=== PATIENT | male | born 1980 | race Hispanic/Latino ===

== ENCOUNTER 2024-03-01 10:53 | Inpatient (IN) | payer SELFPAY ==
[2024-03-01] MEDS ORDERED: VANCOMYCIN 1 GM/VIAL ONE (11:50)
[2024-03-01] MEDS ORDERED: CEFEPIME 2 GM VIAL ONE (11:50)
[2024-03-01] MEDS ORDERED: NA CHLORIDE 0.9% 100 ML ONE (11:50)
[2024-03-01] MEDS ORDERED: NA CHLORIDE 0.9% 500 ML ONE (11:50)
[2024-03-01] MEDS ORDERED: NA CHLORIDE 0.9% 3,000 ML ONE (11:50)
[2024-03-01 12:03] LABS: Blood Gas Oxyhemoglobin 58.2 % (94-97); Blood O2 Saturation 60.3 % (92-98.5)
[2024-03-01 12:04] LABS: Arterial Blood Carboxyhemoglob 1.5 % (0-1.5); Blood Gas THB 12.6 g/dl (12-18)
[2024-03-01 12:08] LABS: PT Prothrombin Time 15.6 SECONDS (9.4-12.5); PTT, Activated Partial Thromb 29.9 SECONDS (24.3-36.9); Protime INR 1.41
[2024-03-01 12:09] LABS: Absolute Lymphocytes (CBC) 0.8 K/uL (0.7-4.9); Absolute Monocytes 1.1 K/uL (0.1-1.3); Absolute Neutrophil 16.2 K/uL (1.8-8.0); Eosinophils % 0.1 % (0-4.4); Hematocrit 36.3 % (39.6-49.0); Hemoglobin 12.3 g/dL (13.6-17.9); Lymphocytes % 4.2 % (15.3-44.8); MCH 30.1 pg (27.0-35.0); MCHC 33.9 g/dL (32.0-36.0); MCV 88.8 fL (80-100); MPV 9.8 fL (7.6-11.3); Neutrophils % 89.7 % (41.7-73.7); Platelets 210 thou/uL (152-406); RBC Red Blood Cell Count 4.08 M/uL (4.33-5.43); Red Cell Distribution Width 13.7 % (12.1-15.2)
[2024-03-01 12:23] LABS: Albumin 2.7 g/dL (3.4-5.0); Albumin/Globulin Ratio 0.5 (1.1-1.8); Anion Gap 9.7 mEq/L (5.0-15.0); Bilirubin Total 1.8 mg/dL (0.2-1.0); Globulin 5.2 g/dL (2.3-3.5); Potassium 3.7 mEq/L (3.5-5.1); Protein, Total 7.9 g/dL (6.4-8.2)
--- NOTE | 2024-03-01 12:34 | RAD REPORT ---
EXAM DESCRIPTION: CT - Foot Right Wo Con - 03/01/2024 12:09 pm CLINICAL HISTORY: eval for osteo/infection COMPARISON: Chest Single View dated 03/01/2024 TECHNIQUE: Thin cut axial CT imaging of the right foot was performed without IV contrast. Multiplana r reformats were generated and reviewed. All CT scans are performed using dose optimization technique as appropriate and may include automated exposure control or mA/KV adjustment according to patient size. FINDINGS: Skin ulceration along the lateral aspect of the big toe at the level of the first metatars ophalangeal articulation. Adjacent soft tissue swelling, and gas tracking along the dorsal soft tissu es surrounding the extensor tendons, and gas also tracking distally along the proximal phalanx. Moderate first metatarsophalangeal joint effusion. No acute fracture, dislocation, or osseous destructive changes. No other appreciable fluid collections. Moderate subcutaneous edema throughout the foot and ankle, mo st pronounced dorsally. Mild scattered degenerative changes of the remainder of the phalanges, and to lesser extent the midfo ot articulations. Small to moderate calcaneal spurring. IMPRESSION: Bilateral big toe soft tissue ulcer with gas tracking along the dorsal soft tissues and the proximal phalanx as above. No osseous destructive changes to suggest ongoing osteomyelitis on CT. If there is persistent clinica l concern, additional evaluation by MRI would provide improved sensitivity. Moderate first metatarsophalangeal joint effusion.
[2024-03-01 12:59] LABS: Specific Gravity 1.024 (1.005-1.030); Sqamous Epithelial <5 /HPF (None Seen); Urine Bacteria <20 /HPF (<20); Urine Bilirubin 1+ (Negative); Urine Blood 2+ (Negative); Urine Clarity Extremely Turbid (Clear); Urine Color Yellow (Yellow); Urine Culture Reflex Order NOT NEEDED; Urine Glucose 3+ (Negative); Urine Ketones NEGATIVE (Negative); Urine Microscopic Reflex YN ORDER UMIC; Urine Mucus Slight /HPF (None Seen); Urine Nitrite NEGATIVE (Negative); Urine Protein 3+ (Negative); Urine RBC <5 /HPF (None Seen); Urine Urobilinogen 2+ (Normal)
--- NOTE | 2024-03-01 13:05 | RAD REPORT ---
[facility] 12[facility]34 pm CLINICAL HISTORY: COUGH COMPARISON: Chest Single View dated 03/18/2023; Chest Single View dated 05/14/2022 TECHNIQUE: Portable AP view of the chest. FINDINGS: The lungs are clear. No pneumothorax or effusion. Progressive cardiomegaly. Mediastinal c ontours are unremarkable. IMPRESSION: No acute pulmonary process. Progressive cardiomegaly.
--- NOTE | 2024-03-01 13:25 | ER ---
Nurse's Notes [facility] Name: Abelino Corbin Jr Age: 43 yrs Sex: Male : 1980 Arrival Date: 03/01/2024 Time: 10:53 Bed 6 Private MD: Diagnosis: Necrotizing fasciitis;Sepsis, unspecified organism;Other specified diabetes mellitus with hyperglycemia;Acute kidney failure, unspecified Presentation: 03/01 11:02 Chief complaint: Patient states: right great toe ulcers x 3 months. Foot is swollen, tm6 red, and causing sharp pain in ankle. Coronavirus screen: Vaccine status: Patient reports being unvaccinated. Ebola Screen: Patient negative for fever greater than or equal to 101.5 degrees Fahrenheit, and additional compatible Ebola Virus Disease symptoms Patient denies exposure to infectious person. Patient denies travel to an Ebola-affected area in the 21 days before illness onset. No symptoms or risks identified at this time. Initial Sepsis Screen: Does the patient meet any 2 criteria? HR > 90 bpm. No. Patient's initial sepsis screen is negative. Does the patient have a suspected source of infection? No. Patient's initial sepsis screen is negative. Risk Assessment: Do you want to hurt yourself or someone else? Patient reports no desire to harm self or others. Onset of symptoms is unknown. 11:02 Method Of Arrival: Ambulatory tm6 11:02 Acuity: ROBERTA 3 tm6 Triage Assessment: 11:05 General: Appears uncomfortable, Behavior is calm, cooperative. Pain: Complains of pain tm6 in right foot Pain radiates to back and right leg Pain currently is 8 out of 10 on a pain scale. Quality of pain is described as sharp, shooting, throbbing. EENT: No signs and/or symptoms were reported regarding the EENT system. Neuro: Level of Consciousness is awake, alert, obeys commands, Oriented to person, place, time, situation. Cardiovascular: Patient's skin is warm and dry. Respiratory: Airway is patent Respiratory effort is even, unlabored, Respiratory pattern is regular, symmetrical. GI: No deficits noted. No signs and/or symptoms were reported involving the gastrointestinal system. Abdomen is round. : No signs and/or symptoms were reported regarding the genitourinary system. Derm: Skin is red, Skin temperature is warm Wound noted right foot. Musculoskeletal: Swelling present in right foot Reports pain in right foot. Historical: - Allergies: 11:05 starfruit; tm6 - PMHx: 11:05 Hypertensive disorder; diabetes mellitus; Alcoholism; tm6 - PSHx: 11:05 None; tm6 - Immunization history:: Client reports having NOT received the Covid vaccine. - Infectious Disease History:: Denies. - Social history:: Smoking status: Patient denies any tobacco usage or history of. Patient uses alcohol, on a daily basis. Screenin:32 [facility] ED Fall Risk Assessment (Adult) History of falling in the last 3 months, kc6 including since admission No falls in past 3 months (0 pts) Confusion or Disorientation No (0 pts) Intoxicated or Sedated No (0 pts) Impaired Gait No (0 pts) Mobility Assist Device Used No (0 pt) Altered Elimination No (0 pt) Score/Fall Risk Level 0 - 2 = Low Risk. Abuse screen: Denies threats or abuse. Denies injuries from another. Nutritional screening: No deficits noted. Tuberculosis screening: No symptoms or risk factors identified. 11:42 Sepsis Screening:. Sepsis Screening:. go2 Assessment: 11:39 General: Appears in no apparent distress. uncomfortable, Behavior is calm, cooperative, go2 appropriate for age, Smells of Denies fever, feeling ill, fatigue, chills. Pain: Complains of pain in right foot Pain does not radiate. Pain currently is 7 out of 10 on a pain scale. Quality of pain is described as burning, aching, Pain began 2 months ago. 11:41 Neuro: No deficits noted. Cardiovascular: No deficits noted. Respiratory: No deficits go2 noted. Musculoskeletal: Swelling present in right foot Pulse, motor, sensory present to right lower extremity. Injury Description: Ulcer with odor and drainage. Vital Signs: 11:01 BP 173 / 85; Pulse 103; Resp 20; Temp 99(O); Pulse Ox 99% on R/A; Weight 108.86 kg; tm6 Height 5 ft. 4 in. ; Pain 7/10; 12:35 BP 152 / 98; Pulse 98; Resp 18 S; Pulse Ox 100% on R/A; kc6 14:18 BP 155 / 93; Pulse 94; Resp 20; Temp 98.9; Pulse Ox 100% ; go2 11:01 Body Mass Index 41.20 (108.86 kg, 162.56 cm) tm6 11:01 Pain Scale: Adult tm6 ED Course: 10:57 Patient arrived in ED. ra3 10:58 Carmen Bush MD is Attending Physician. gb1 11:05 Triage completed. tm6 11:05 Arm band placed on left wrist. tm6 11:17 Jerri Ballesteros, RN is Primary Nurse. go2 11:31 Patient has correct armband on for positive identification. Bed in low position. Call kc6 light in reach. Side rails up X 1. Adult w/ patient. desk monitor on. Pulse ox on. NIBP on. Pillow given. 11:31 EKG done, by ED staff, reviewed by Carmen Bush MD. kc6 11:39 Inserted saline lock: 20 gauge in right forearm, using aseptic technique. go2 12:00 Arterial Blood Gas: VBG Sent. go2 12:00 BETA HYDROXYBUTYRATE Sent. go2 12:02 Blood Culture Adult (2) Sent. go2 12:02 CBC with Diff Sent. go2 12:02 CMP Sent. go2 12:02 Lactate w/ 2H reflex if indic. Sent. go2 12:02 Protime (+inr) Sent. go2 12:02 Ptt, Activated Sent. go2 12:[address] via stretcher. go2 12:11 Foot Right Wo Con In Process Unspecified. EDMS 12:22 Patient moved back from CT. go2 12:36 Chest Single View XRAY In Process Unspecified. EDMS 12:43 Blood Culture Adult (2) Sent. go2 12:43 Urinalysis w/ reflexes Sent. go2 13:17 Pain meds. Eleazar SANTAMARIA notified. go2 13:23 Carl Alaniz MD is Hospitalizing Provider. gb1 14:15 415 CM met with and his parents at bedside. Patient identified by name and ane . Demographic sheet confirmed. Patient states he lives with his parents in a single story home . states he has been using a cane to assist with ambulation, but otherwise performs ADLs independently prior to admission. 1417 Dalton Ferguson NP and Dr. Garcia at bedside to discuss plan of care. 1425 states no other DME, HH, home oxygen or medical services at this time. No MPOA at this time, patient states he will discuss with his parents. Community resource packet and diabetic education information services provided to patient. states his preferred plan is to return home upon discharge. Patient's mother, Jess, states she will be able to transport home when he is discharged. CM team will continue to follow and coordinate care. 14:19 Admitting physician to see patient. go2 14:20 human resources communications manager. go2 15:26 No provider procedures requiring assistance completed. Patient admitted, IV remains in go2 place. Administered Medications: 12:00 Drug: Cefepime IVPB 2 grams IVPB at 200 ml/hr once over 30 mins; (mix in NS 100 mL) go2 Route: IVPB; Rate: 200 ml/hr; Infused Over: 30 mins; Site: right forearm; 12:43 Follow up: IV Status: Completed infusion go2 12:44 Follow up: IV Status: Completed infusion go2 12:03 Drug: NS 0.9% IV (30 ml/kg) 30 ml/kg IV at bolus once; Sepsis Protocol Route: IV; Rate: go2 bolus; Site: right forearm; 15:22 Follow up: IV Status: Completed infusion go2 12:43 Drug: vancoMYCIN IVPB 2 grams IVPB at calculated rate once Route: IVPB; Rate: go2 calculated rate; Site: right forearm; 14:12 Drug: morphine IVP or IV 5 mg IVP once over 4 mins Route: IVP; Infused Over: 4 mins; go2 Site: right forearm; 14:19 Follow up: Response: No adverse reaction go2 14:12 Drug: Ondansetron IVP 4 mg IVP once; over 2 minutes Route: IVP; Site: right forearm; go2 14:19 Follow up: Response: No adverse reaction go2 Output: 12:44 Urine: 30ml (Voided); Total: 30ml. go2 Outcome: 13:24 Decision to Hospitalize by Provider. gb1 15:26 Admitted to Med/surg accompanied by tech, family with patient, via wheelchair, room go2 219, with chart, 15:26 Condition: good 15:26 Instructed on the need for admit, 15:27 Patient left the ED. kc6 Signatures: Dispatcher [employer] Mignon Banuelos RN RN kc6 Carmen Bush MD MD gb1 Jesus Cullen, RN RN tm6 Tressa Greenberg ra3 Laurie Claros, RN RN Jerri Delgado RN RN go2
--- NOTE | 2024-03-01 13:25 | EDPHYS ---
Physician Documentation [facility] Name: Abelino Corbin Jr Age: 43 yrs Sex: Male : 1980 Arrival Date: 03/01/2024 Time: 10:53 Bed 6 Private MD: ED Physician Carmen Bush HPI: 03/01 13:24 This 43 yrs old Male presents to ER via Ambulatory with complaints of Foot gb1 Pain - open wound psbl infection. 13:24 43 year old male with history of NIDDM, HTN, HLD here with concern for acute gb1 necrotizing fasciitis, started IV antibx and consulted general surgery, Dr. Garcia- is on the case.. Historical: - Allergies: 11:05 starfruit; tm6 - PMHx: 11:05 Hypertensive disorder; diabetes mellitus; Alcoholism; tm6 - PSHx: 11:05 None; tm6 - Immunization history:: Client reports having NOT received the Covid vaccine. - Infectious Disease History:: Denies. - Social history:: Smoking status: Patient denies any tobacco usage or history of. Patient uses alcohol, on a daily basis. Exam: 13:24 Constitutional: This is a well developed, well nourished patient who is awake, alert, gb1 and in no acute distress. Head/Face: Normocephalic, atraumatic. Eyes: Pupils equal round and reactive to light, extra-ocular motions intact. Lids and lashes normal. Conjunctiva and sclera are non-icteric and not injected. Cornea within normal limits. Periorbital areas with no swelling, redness, or edema. ENT: Nares patent. No nasal discharge, no septal abnormalities noted. Tympanic membranes are normal and external auditory canals are clear. Oropharynx with no redness, swelling, or masses, exudates, or evidence of obstruction, uvula midline. Mucous membranes moist. Neck: Trachea midline, no thyromegaly or masses palpated, and no cervical lymphadenopathy. Supple, full range of motion without nuchal rigidity, or vertebral point tenderness. No Meningismus. Chest/axilla: Normal chest wall appearance and motion. Nontender with no deformity. No lesions are appreciated. Cardiovascular: Regular rate and rhythm with a normal S1 and S2. No gallops, murmurs, or rubs. Normal PMI, no JVD. No pulse deficits. Respiratory: Lungs have equal breath sounds bilaterally, clear to auscultation and percussion. No rales, rhonchi or wheezes noted. No increased work of breathing, no retractions or nasal flaring. Abdomen/GI: Soft, non-tender, with normal bowel sounds. No distension or tympany. No guarding or rebound. No evidence of tenderness throughout. Skin: 43-year-old male with history of noncompliance diabetes, hypertension hyperlipidemia stop taking his medicine about a year ago comes in with a right foot necrotizing fasciitis. I started IV antibiotics and consult with Dr. Garcia of general surgeon for washout in the operating room. Patient's been admitted by Dr. Alaniz as per the hospitalist service. I have started the sepsis protocol. IV antibiotics were started Vanco mycin and cefepime as well as 30 cc/kg of normal saline. Vital Signs: 11:01 BP 173 / 85; Pulse 103; Resp 20; Temp 99(O); Pulse Ox 99% on R/A; Weight 108.86 kg; tm6 Height 5 ft. 4 in. ; Pain 7/10; 12:35 BP 152 / 98; Pulse 98; Resp 18 S; Pulse Ox 100% on R/A; kc6 14:18 BP 155 / 93; Pulse 94; Resp 20; Temp 98.9; Pulse Ox 100% ; go2 11:01 Body Mass Index 41.20 (108.86 kg, 162.56 cm) tm6 11:01 Pain Scale: Adult tm6 MDM: 11:13 Patient medically screened. gb1 13:24 Data reviewed: vital signs, nurses notes, lab test result(s), CBC, electrolytes, gb1 hepatic panel, radiologic studies, CT scan. 03/01 11:40 Order name: Blood Culture Adult (2) 1 03/01 11:40 Order name: CBC with Diff; Complete Time: 12:35 [facility] 03/01 11:40 Order name: CMP; Complete Time: 12:35 [facility] 03/01 11:40 Order name: Lactate w/ 2H reflex if indic.; Complete Time: 12:35 [facility] 03/01 11:40 Order name: Protime (+inr); Complete Time: 12:35 [facility] 03/01 11:40 Order name: Ptt, Activated; Complete Time: 12:35 gb 03/01 11:40 Order name: Urinalysis w/ reflexes; Complete Time: 13:14 03/01 11:42 Order name: BETA HYDROXYBUTYRATE; Complete Time: 12:35 03/01 11:42 Order name: Arterial Blood Gas: VBG 03/01 11:48 Order name: Glucose, Ancillary Testing; Complete Time: 12:35 EDMS 03/01 12:05 Order name: ABG Arterial Blood Gas; Complete Time: 12:35 EDMS 03/01 11:40 Order name: Chest Single View XRAY; Complete Time: 13:14 03/01 11:47 Order name: Foot Right Wo Con; Complete Time: 12:35 EDMS 03/01 11:40 Order name: Accucheck; Complete Time: 11:44 03/01 11:40 Order name: Cardiac monitoring; Complete Time: 11:44 03/01 11:40 Order name: EKG - Nurse/Tech; Complete Time: 11:44 03/01 11:40 Order name: IV Saline Lock - Large Bore; Complete Time: 11:44 03/01 11:40 Order name: Labs collected and sent; Complete Time: 11:44 03/01 11:40 Order name: O2 Per Protocol; Complete Time: 11:44 03/01 11:40 Order name: O2 Sat Monitoring; Complete Time: 11:45 03/01 11:40 Order name: Vital Signs; Complete Time: 11:45 03/01 13:57 Order name: NPO; Complete Time: 14:08 gb Administered Medications: 12:00 Drug: Cefepime IVPB 2 grams IVPB at 200 ml/hr once over 30 mins; (mix in NS 100 mL) go2 Route: IVPB; Rate: 200 ml/hr; Infused Over: 30 mins; Site: right forearm; 12:43 Follow up: IV Status: Completed infusion go2 12:44 Follow up: IV Status: Completed infusion go2 12:03 Drug: NS 0.9% IV (30 ml/kg) 30 ml/kg IV at bolus once; Sepsis Protocol Route: IV; Rate: go2 bolus; Site: right forearm; 15:22 Follow up: IV Status: Completed infusion go2 12:43 Drug: vancoMYCIN IVPB 2 grams IVPB at calculated rate once Route: IVPB; Rate: go2 calculated rate; Site: right forearm; 14:12 Drug: morphine IVP or IV 5 mg IVP once over 4 mins Route: IVP; Infused Over: 4 mins; go2 Site: right forearm; 14:19 Follow up: Response: No adverse reaction go2 14:12 Drug: Ondansetron IVP 4 mg IVP once; over 2 minutes Route: IVP; Site: right forearm; go2 14:19 Follow up: Response: No adverse reaction go2 Disposition Summary: 03/01/24 13:24 Hospitalization Ordered Notes: Hospitalization Status: Inpatient Admission gb1 Provider: Carl Alaniz gb1 Location: Telemetry/MedSurg (Inpatient) gb1 Condition: Fair gb1 Problem: new gb1 Symptoms: have worsened gb1 Bed/Room Type: Standard 1 Room Assignment: 219(03/01/24 13:53) bd Diagnosis - Necrotizing fasciitis gb1 - Sepsis, unspecified organism gb1 - Other specified diabetes mellitus with hyperglycemia gb1 - Acute kidney failure, unspecified gb1 Forms: - Medication Reconciliation Form gb1 - SBAR form gb1 - Leadership Thank You Letter gb1 Critical care time excluding procedures: 13:45 Critical care time: Bedside Care: 75 minutes, Consultation: 15 minutes, Family gb1 Intervention: 20 minutes. Total time: 110 minutes Signatures: Dispatcher [employer] EDMS Estelle Redding Gina, MD MD gb1 Jesus Cullen RN RN tm6 Jerri Ballesteros RN RN go2 Corrections: (The following items were deleted from the chart) 11:41 11:41 Chest Single View+RAD.RAD.BRZ ordered. EDMS EDMS 13:53 13:24 gb1 bd
--- NOTE | 2024-03-01 14:02 | P.HP ---
Certification for Inpatient Patient admitted to: Inpatient With expected LOS: >2 Midnights Patient will require the following post-hospital care: None Practitioner: I am a practitioner with admitting privileges, knowledge of patient current condition, hospital course, and medical plan of care. Services: Services provided to patient in accordance with Admission requirements found in Title 42 Section 412.3 of the Code of Federal Regulations Patient History Date of Service: 03/01/24 Reason for admission: Diabetic foot wound, sepsis History of Present Illness: 43-year-old male with history of zym-eqrjibt-ldhwwefza diabetes, hypertension, chronic alcohol use disorder who has been noncompliant with his medications for last 1 year presents emergency department chief complaint of concern for infection of his right foot. He reports that he typically deals with his calluses with a knife and he has had a small wound present to that part of his right foot for a couple months but over the last couple of days it has become swollen, erythematous with a foul odor present. Patient was evaluated in the emergency department his labs are significant for w zackery blood cell count of 18.1 sodium 126 chloride 94 creatinine 1.33 GFR 67 glucose [address] of his right foot was obtained which showed big toe soft tissue ulcer with gas tracking along the dorsal soft tissues in the proximal phalanx as above, no osseous destructive changes to suggest ongoing osteomyelitis on CT. ED physician discussed case with general surgeryDr. Garcia who will see patient in the hospital. Allergies No Known Allergies Allergy (Unverified 03/18/23 23:50) Home Medications: Aspirin [Aspirin EC 81 MG] 81 mg PO DAILY #30 tab 03/19/23 Atorvastatin Calcium [Lipitor] 40 mg PO BEDTIME #30 tab 03/19/23 Cefdinir [Cefdinir*] 300 mg PO BID #10 cap 03/19/23 Cyclobenzaprine [Flexeril] 10 mg PO DAILY PRN #10 tab 03/19/23 Hydrocodone 10/APAP 325 [[place] 10/325] 1 tab PO Q6H PRN #30 tab 03/19/23 Losartan Potassium [Cozaar*] 100 mg PO DAILY #30 tablet 03/19/23 Metformin HCl [Glucophage*] 500 mg PO BIDWM #60 tab 03/19/23 Ondansetron [Zofran] 4 mg PO Q6H PRN #10 tab 03/19/23 Zolpidem Tartrate [Ambien] 5 mg PO BEDTIME PRN PRN #5 tab 03/19/23 glyBURIDE [Glyburide] 5 mg PO DAILY #30 tab 03/19/23 - Past Medical/Surgical History Diabetic: Yes -: Uncontrolled hypertension -: Uncontrolled hyperlipidemia -: Uncontrolled diabetes mellitus -: Chronic alcohol use disorder Psychosocial/ Personal History: Works full-time, daily alcohol use 6-8 beers daily, - Social History Alcohol use: Yes CD- Drugs: No Caffeine use: No Place of Residence: Home Review of Systems General: Malaise, Other (body aches) Integumentary: Other (Wound to right foot) Physical Examination - Physical Exam General: Alert, In no apparent distress, Oriented x3, Obese HEENT: Atraumatic, PERRLA, EOMI Neck: Supple, 2+ carotid pulse no bruit, No LAD Respiratory: Clear to auscultation bilaterally, Normal air movement Cardiovascular: Regular rate/rhythm, Normal S1 S2 Gastrointestinal: Normal bowel sounds, No tenderness Musculoskeletal: No tenderness Integumentary: Diabetic ulcer (Great toe with erythema, swelling, foul odor and drainage) Neurological: Normal speech, Normal strength at 5/5 x4 extr, Normal tone - Studies Laboratory Data (last 24 hrs) 03/01/24 03/01/24 03/01/24 11:45 11:45 11:45 WBC 18.10 H Hgb 12.3 L Hct 36.3 L Plt Count 210 PT 15.6 H INR 1.41 APTT 29.9 Sodium 126 L Potassium 3.7 BUN 21 H Creatinine 1.33 H Glucose 241 H Total Bilirubin 1.8 H AST 20 ALT 22 Alkaline Phosphatase 99 Assessment and Plan - Plan Assessment: Sepsis secondary to right great toe wound with gas gangrene Diabetes mellitus type [id number]-wejylrpdd with noncompliance, hyperglycemia Hyponatremia History of hypertension Chronic alcohol use disorder Medical noncompliance Plan: Sepsis secondary to right great toe wound with gas gangrene N.p.o., IVF, IV antibiotics with vancomycin/cefepime General Surgery consulted, anticipate incision and drainage/debridement No severe sepsis or septic shock at this time Blood cultures obtained in [facility] need to follow Diabetes mellitus type [id number] with noncompliance, hyperglycemia Has not been taking his medications for about a year now ACHS Accu-Chek, sliding scale insulin A1c in the morning Hyponatremia Likely related to chronic alcohol use, continue IV fluids Recheck chemistry daily History of hypertension Hold unless blood pressures persistently elevated given sepsis Chronic alcohol use disorder Alcohol withdrawal assessments every 4 and as needed As needed Librium Medical noncompliance Counseled on importance of adherence to medication regimen DVT PPX: Lovenox Code status: Full Discharge Plan: Home Plan to discharge in: Greater than 2 days - Advance Directives Does patient have a Living Will: No Does patient have a Durable POA for Healthcare: No - Code Status/Comfort Care Code Status Assessed: Yes (Full code) Critical Care: No Time Spent Managing Pts Care (In Minutes): 65
[2024-03-01] MEDS ORDERED: ONDANSETRON 4 MG/2 ML VIAL ONE (14:10)
[2024-03-01] MEDS ORDERED: MORPHINE 4 MG/ML SYR ONE (14:11)
[2024-03-01] MEDS ORDERED: ONDANSETRON 4 MG/2 ML VIAL IV PRN (15:37)
[2024-03-01] MEDS: NA CHLORIDE 0.9% 1,000 ML IV SCH (16:45)
[2024-03-01] MEDS: ENOXAPARIN 40 MG/0.4 ML SQ SCH (16:46)
[2024-03-01] MEDS: INSULIN REGULAR (HUMAN) 100 UNIT/ML SQ SCH (16:46)
[2024-03-01] MEDS: HYDROCODONE/APAP 7.5/325 MG TAB PO PRN (16:46)
[2024-03-01] MEDS: CEFEPIME 2 GM in NA CHLORIDE 0.9% 100 ML IV SCH (16:47)
[2024-03-01] MEDS: VANCOMYCIN 750 MG in NA CHLORIDE 0.9% 150 ML IVPB ONE (17:29)
[2024-03-01] MEDS: MORPHINE 2 MG/ML SYR IV PRN (20:15)
[2024-03-02] MEDS: HYDRALAZINE HCL 20 MG/ML VIAL IV PRN (04:43)
[2024-03-02 05:01] LABS: Absolute Eosinophils 0.2 K/uL (0-0.5); Absolute Lymphocytes (CBC) 1.1 K/uL (0.7-4.9); Absolute Monocytes 0.9 K/uL (0.1-1.3); Absolute Neutrophil 12.9 K/uL (1.8-8.0); Basophils % 0.3 % (0-1.3); Eosinophils % 1.3 % (0-4.4); Hematocrit 37.2 % (39.6-49.0); Hemoglobin 12.1 g/dL (13.6-17.9); Lymphocytes % 7.1 % (15.3-44.8); MCH 29.7 pg (27.0-35.0); MCHC 32.6 g/dL (32.0-36.0); MCV 91.1 fL (80-100); MPV 10.5 fL (7.6-11.3); Monocytes % 6.2 % (3.3-12.3); Neutrophils % 85.1 % (41.7-73.7); Platelets 178 thou/uL (152-406); RBC Red Blood Cell Count 4.08 M/uL (4.33-5.43); Red Cell Distribution Width 13.6 % (12.1-15.2)
[2024-03-02 05:27] LABS: Albumin 2.4 g/dL (3.4-5.0); Albumin/Globulin Ratio 0.5 (1.1-1.8); Anion Gap 7.7 mEq/L (5.0-15.0); Globulin 4.9 g/dL (2.3-3.5); Magnesium 2.2 mg/dL (1.6-2.4); Potassium 3.7 mEq/L (3.5-5.1); Protein, Total 7.3 g/dL (6.4-8.2)
[2024-03-02 05:47] LABS: Band Neutrophils 2 % (0-1); Differential Total Cells Count 100; Lymphocytes 7 % (15-42); Monocytes 5 % (0-10); Segmented Neutrophils 86 % (40-80)
[2024-03-02 05:48] LABS: Blood Morphology Comment NOT SEEN (NOT SEEN); Platelet Estimate ADEQ
[2024-03-02] MEDS: BUPIVACAINE 0.5% PF 10 ML VIAL ONE (07:22)
[2024-03-02] MEDS ORDERED: ONDANSETRON 4 MG/2 ML VIAL ONE ×2 (07:42→07:53)
[2024-03-02] MEDS ORDERED: KETOROLAC 30 MG/ML INJ ONE ×2 (07:42→07:53)
[2024-03-02] MEDS ORDERED: LIDOCAINE 2% MPF 5 ML VIAL ONE ×2 (07:42→07:53)
[2024-03-02] MEDS ORDERED: dexAMETHasone 10 MG/ML VIAL ONE (07:53)
[2024-03-02] MEDS ORDERED: ROCURONIUM 50 MG/5 ML VIAL IV ONE (07:53)
[2024-03-02] MEDS ORDERED: MIDAZOLAM HCL 2 MG/2 ML INJ ONE (07:53)
[2024-03-02] MEDS ORDERED: FENTANYL CITR 100 MCG/2 ML ONE (07:53)
[2024-03-02] MEDS ORDERED: propofoL 200 MG/20 ML VIAL IV ONE (07:53)
[2024-03-02] MEDS: SILVER SULFADIAZINE 1% 25 GM TOP ONE (08:09)
--- NOTE | 2024-03-02 08:12 | P.BOP ---
Preoperative diagnosis: right foot necrotic infected diabetic foot ulcer Postoperative diagnosis: same Primary procedure: Excisional debridement down to fascia right foot necrotic infected Secondary procedure: diabetic foot ulcer 9x7x1.5cm Other procedure(s): Pulse lavage Estimated blood loss: <10cc Specimen: culture, necrotic tissue Anesthesia: General Complications: None Transferred to: Recovery Room Condition: Good
[2024-03-02] MEDS: VANCOMYCIN 2 GM in NA CHLORIDE 0.9% 500 ML IVPB SCH (09:15)
--- NOTE | 2024-03-02 11:58 | CON ---
Date of Consultation: 03/01/2024 History Of Present Illness: This is the case of a 43-year-old patient, comes to us with diabetes, hy pertension, chronic alcohol use, complaining of right foot infection. Apparently, he is diabetic, bu t he has not taken his medication in a year. Admitted to the hospital for infection of the right toe and a surgical consult was called for debridement. He denies any trauma. Denies any recent followu p. Denies any vascular checkup. Allergies: NONE. Medications: Reviewed. Family History: Diabetes. Past Surgical History: None. Social History: Used alcohol, 6 to 8 beers daily. He does not smoke. Review of Systems: Right foot, warm temperature with smell. No shortness of breath. No chest pain. Review of systems 10 points otherwise unremarkable. Physical Examination: Vital Signs: Reviewed. General: The patient is awake, alert. No distress. Oriented x3. HEENT: Pupils are equal and reactive. Anicteric. Neck: Supple. Chest: Clear. Heart: S1, S2. Abdomen: Soft and depressible. Extremities: Diminished pulses bilaterally. There is a necrotic diabetic ulcer in the right great t oe region. Consistent with cellulitis also of the foot area, necrotic ulcer. Sensation is still pre sent and diminished. Laboratory Data: Blood work shows WBC count of 18 with hemoglobin of 12 and platelets of 210. INR i s 1.41, potassium 3.7, glucose 174. Foot CT reviewed with the patient. Assessment And Plan: A 43-year-old patient with noncontrolled diabetes, he does not take his medicat ions, not a necrotic diabetic ulcer on the right foot and cellulitis and abscess. The patient unders tands the need for debridement of that area with benefits, alternatives, and risks including, but not limited to infection, bleeding, damage to adjacent structures, anesthesia complication, nonhealing w ound, MD and even . He also understands this may not relieve his symptoms. He might need more than one surgical intervention. He understands this will require wound care, antibiotics, will requi re some workup from the vascular and osteomyelitis standpoint. If he does not control his diabetes a nd take care of his wounds, he might lose his foot. He understood. ALLIE/MODL Voice ID: [id number] Report ID: [id number]
--- NOTE | 2024-03-02 12:42 | CON ---
History Of Present Illness: The patient is a 43-year-old male with significant past medical history of diabetes mellitus. Because of poor social condition, he has not seen any doctor for his diabetes, coming in with right foot infection and gas gangrene which was diagnosed at the time of admission. Patient has significant past medical history of diabetes mellitus, hypertension, chronic alcohol use. Denies any headache, nausea, vomiting, chest pain, abdominal pain, constipation, or diarrhea. Past Medical History: As per HPI. Social History: Tobacco positive. Alcohol positive. Family History: Noncontributory. Medications: Cefepime and vancomycin. See MARs for other medications. Allergies: NO KNOWN DRUG ALLERGIES. Review of Systems: A 10-point review was performed. Physical Examination: General: This is a 43-year-old male, sitting in bed, not in any acute cardiopulmonary distress. Vital Signs: Temperature 98, pulse 86, respirations 18, blood pressure 140/74. HEENT: Unremarkable. Neck: Supple. Lungs: Basal crackles. Heart: S1, S2. Regular. Abdomen: Obese. Bowel sounds present. Extremity: Right leg with erythematous changes, and wound noted, and 2+ edema. Laboratory Data: Shows WBC down from 18 to 15, hemoglobin 12.1, platelets are 178. Chemistry shows BUN of 23, creatinine 1.3, hemoglobin A1c is 7.5, albumin level is 2.4. Micro data: Blood cultures and wound cultures are pending. Assessment And Plan: Right foot ulcer secondary to diabetes mellitus with diabetic neuropathy, and p atient with noncompliance secondary to his social condition. CT scan showing gas tracking, gas gangr turner, status post surgical debridement. Patient is doing better. Continue IV antibiotic, leukocytosi s, diabetes management, to control sugar, fasting below 150. We will continue to monitor. Continue treatment for 3-4 weeks with IV antibiotic and can be switched to oral once surgery is done. We will follow the patient closely. Thank you for consult. BLAYNE/FRANCOIS Voice ID: [id number] Report ID: [id number]
--- NOTE | 2024-03-02 17:48 | EKG ---
Test Date: 2024-03-01 Test Time: 11:28:07 New Order Clerk: KATIA MEASUREMENT RESULTS: Intervals: Rate: 100 IA: 130 QRSD: 76 QT: 368 QTc: 474 [place]: P: 64 IA: 130 QRS: 62 T: 68 INTERPRETIVE STATEMENTS: Normal sinus rhythm Nonspecific T wave abnormality Prolonged QT Abnormal ECG Compared to ECG 03/18/2023 18:34:41 Prolonged QT interval now present T-wave abnormality still present Electronically Signed On 03-02-24 17:45:45 CDT by Ernesto Cedeno
--- NOTE | 2024-03-02 18:22 | P.PN ---
Date of Service: 03/02/24 Subjective Awake and teary eyed, feeling depressed. no new complaints ROS 10 point ROS as noted above, otherwise negative Physical Exam General: Alert and Oriented x3, NAD, Obese HEENT: Atraumatic, PERRLA, EOMI Neck: Supple, 2+ carotid pulse no bruit, No LAD Respiratory: Clear to auscultation bilaterally, Normal air movement Cardiovascular: Mild tachycardia, Normal S1 S2 Gastrointestinal: Normal bowel sounds, No tenderness Musculoskeletal: No tenderness Integumentary: Diabetic ulcer right foot dressing CDI Neurological: Normal speech, Normal strength at 5/5 x4 extr, Normal tone Vitals Reviewed Assessment: Sepsis secondary to right great toe wound with gas gangrene Diabetes mellitus type [id number]-sfsqtoerl with noncompliance, hyperglycemia Hyponatremia History of hypertension Chronic alcohol use disorder Medical noncompliance Plan Sepsis secondary to right great toe wound with gas gangrene N.p.o., IVF, continue IV vancomycin/cefepime General Surgery Dr. Garcia, S/P excisional debridement down to fascia right foot necrotic infected Follow wound cultures No severe sepsis or septic shock at this time Blood cultures obtained in EDNGTD Diabetes mellitus type 2ecn-[id number]-wikigzhyr with noncompliance, hyperglycemia Has not been taking his medications for about a year now ACHS Accu-Chek, sliding scale insulin Semglee started 03/02 A1c 7.5 Hyponatremia sodium improved from 126 to 130 Likely related to chronic alcohol use continue IV fluids Recheck chemistry daily History of hypertension BP 144/74 Hold unless blood pressures persistently elevated given sepsis hydralazine PRN Chronic alcohol use disorder Alcohol withdrawal assessments every 4 and as needed As needed Librium Medical noncompliance Counseled on importance of adherence to medication regimen DVT PPX: Lovenox Code status: Full Discharge Plan: Home Plan to discharge in: Greater than 2 days
[2024-03-02] MEDS: INSULIN GLARGINE 100 UNIT/ML SQ SCH (21:35)
--- NOTE | 2024-03-02 22:27 | OP ---
Date of Procedure: 03/02/2024 Surgeon: Tunde Garcia MD Preoperative Diagnoses: Right foot necrotic infected diabetic ulcer, cellulitis. Postoperative Diagnoses: Right foot necrotic infected diabetic ulcer, cellulitis. Procedure: Excisional debridement down to fascia of the right foot necrotic infected diabetic foot u lcer, 9 x 7 x 1.5 cm. Estimated Blood Loss: Less than 10 cc. Specimen: Necrotic tissue including fat and part of the fascia. Cultures were done. Anesthesia: General plus local. Indications: This is a case of a 43-year-old patient with diabetes, not taking care of himself. He has not been able to buy his diabetes medication for a year. He is not using proper diabetic shoes. He was counseled about the importance of diabetes control and also a proper shoe wear checking his v ascular flow in that region, following up with the primary doctor, but at this moment, the necrotic t issue was advanced, so we have to take him to surgery for debridement. He understands the benefits, alternatives, and risks of debridement which include, but not limited to infection, bleeding, damage to adjacent structures, anesthesia complication, nonhealing wound, IA and even . He also unders tands this may not relieve the symptoms. He might need more than one surgical intervention that may include amputation. He is going to be trying to be compliant with dressing changes, we will see how this delineate. Description Of Procedure: The patient was brought to the operating room, placed in supine position. Anesthesia was done without complication. Time-out was called. Local anesthesia was applied. Debr idement of the necrotic tissue present. This led us into a cavity where the abscess is. We tracked the loculation, removed some of the necrotic fatty tissue, some of the fascia have to come with the s pecimen, skin too, and then we opened this complex abscess, multiple areas. They connect to the firs t toe dorsum of the foot. It looked like there is a toe opening that probably was the culprit of thi s and tracked into the dorsum of the foot. That tract was opened. The area was irrigated. A pulse lavage was done in that area with several liters of fluid and then after that, we packed the area wit h Silvadene wet-to-dry. The patient tolerated the procedure well. Sponge counts and instrument coun ts correct. The patient was sent to recovery in stable condition. HM/MODL Voice ID: [id number] Report ID: [id number]
[2024-03-03] MEDS: LORazepam 2 MG/ML VIAL ONE (06:17)
[2024-03-03] MEDS: LORazepam 2 MG/ML VIAL IV ONE ×2 (06:21→06:35)
--- NOTE | 2024-03-03 06:53 | P.PN ---
Date of Service: 03/03/24 Subjective Some anxiety with elevated BP this morning Complaining of shortness of breathchest x-ray performed ativan and Apresoline given ROS 10 point ROS as noted above, otherwise negative Physical Exam General: AAO x3, NAD, Obese, anxious HEENT: Atraumatic, PERRLA, EOMI Neck: Supple, 2+ carotid pulse no bruit, No LAD Respiratory: Clear to auscultation bilaterally, Normal air movement, tachypneic on 2 L nasal cannula Cardiovascular: Mild tachycardia, Normal S1 S2 Gastrointestinal: Normal bowel sounds, No tenderness Musculoskeletal: No tenderness Integumentary: Diabetic ulcer right foot dressing CDI Neurological: Normal speech, Normal strength at 5/5 x4 extr, Normal tone Vitals Reviewed Assessment: Sepsis secondary to right great toe wound with gas gangrene- S/P excisional debridement Diabetes mellitus type [id number]-lhrrevfio with noncompliance, hyperglycemia Hyponatremia History of hypertension Chronic alcohol use disorder Medical noncompliance Plan Sepsis secondary to right great toe wound with gas gangrene N.p.o., IVF, continue IV vancomycin/cefepime General Surgery Dr. Garcia, S/P excisional debridement down to fascia right foot necrotic infected Follow wound cultures- will require 4 weeks of antibiotics No severe sepsis or septic shock at this time Blood cultures obtained in EDNGTD Diabetes mellitus type 1czi-hpswvgh-atptnhdnv with noncompliance, hyperglycemia Has not been taking his medications for about a year now ACHS Accu-Chek, sliding scale insulin Semglee started 03/02, glucose mildly improved A1c 7.5 Hyponatremia sodium improved from 135 Likely related to chronic alcohol use continue IV fluids Recheck chemistry daily History of hypertension BP 171/91 Started norvasc Hold unless blood pressures persistently elevated given sepsis hydralazine PRN Chronic alcohol use disorder Alcohol withdrawal assessments every 4 and as needed As needed Librium Medical noncompliance Counseled on importance of adherence to medication regimen DVT PPX: Lovenox Code status: Full Discharge Plan: Home Plan to discharge in: Greater than 2 days <Martita Mcclelland - Last Filed: 03/03/24 19:02> Patient seen and examined with Ms. Mcclelland. Patient significantly short of breath and requiring oxygen. Chest x-ray demonstrated pulmonary edema. Pulmonary edema likely secondary to volume overload. Given patient has history of chronic alcohol abuse, does the need to rule out alcoholic cardiomyopathy. Treat pulmonary edema with IV Lasix Supplemental oxygen as needed Obtain echocardiogram to assess for LV function. Benzodiazepine for alcohol withdrawal symptoms Hyponatremia improved. Discontinue IV fluid. <neftali lemons - Last Filed: 03/04/24 17:05>
--- NOTE | 2024-03-03 06:57 | RAD REPORT ---
EXAM DESCRIPTION: RAD - Chest Single View - 03/03/2024 6:33 am CLINICAL HISTORY: shortness of breath COMPARISON: Chest Single View dated 03/01/2024; Chest Single View dated 03/18/2023; Chest Single View d ated 05/14/2022 FINDINGS: Lines: None. Lungs: Increasing prominence of the pulmonary interstitium. Pleural: No significant pleural effusions or pneumothorax. Cardiac: Cardiomegaly. Mediastinum: Within normal limits. Bones: No acute fractures. Other: None IMPRESSION: Developing pulmonary edema.
[2024-03-03 07:30] LABS: Absolute Eosinophils 0.1 K/uL (0-0.5); Absolute Lymphocytes (CBC) 0.6 K/uL (0.7-4.9); Absolute Monocytes 0.7 K/uL (0.1-1.3); Absolute Neutrophil 9.9 K/uL (1.8-8.0); Basophils % 0.2 % (0-1.3); Eosinophils % 1.1 % (0-4.4); Hemoglobin 11.2 g/dL (13.6-17.9); Lymphocytes % 5.5 % (15.3-44.8); MCH 30.7 pg (27.0-35.0); MCHC 33.9 g/dL (32.0-36.0); MCV 90.7 fL (80-100); MPV 9.2 fL (7.6-11.3); Monocytes % 5.9 % (3.3-12.3); Neutrophils % 87.3 % (41.7-73.7); Platelets 212 thou/uL (152-406); RBC Red Blood Cell Count 3.64 M/uL (4.33-5.43); Red Cell Distribution Width 13.8 % (12.1-15.2)
[2024-03-03 07:46] LABS: Albumin 2.3 g/dL (3.4-5.0); Albumin/Globulin Ratio 0.5 (1.1-1.8); Anion Gap 13.5 mEq/L (5.0-15.0); Bilirubin Total 0.7 mg/dL (0.2-1.0); Globulin 4.6 g/dL (2.3-3.5); Magnesium 2.1 mg/dL (1.6-2.4); Potassium 3.5 mEq/L (3.5-5.1); Protein, Total 6.9 g/dL (6.4-8.2)
[2024-03-03] MEDS: FUROSEMIDE 40 MG/4 ML VIAL IV ONE (08:46)
[2024-03-03] MEDS: FOLIC ACID 1 MG TABLET PO SCH (08:47)
[2024-03-03] MEDS: MULTIVITAMIN TAB PO SCH (08:47)
[2024-03-03] MEDS: THIAMINE HCL 100 MG TABLET PO SCH (08:47)
[2024-03-03] MEDS: chlordiazePOXIDE HCl 5 MG CAP PO PRN (09:38)
[2024-03-03 16:48] VITALS: BMI 41.4
[2024-03-03] MEDS: AMLODIPINE 5 MG TAB ONE (21:57)
[2024-03-03] MEDS: AMLODIPINE 5 MG TAB PO SCH (22:04)
[2024-03-04] MEDS: VANCOMYCIN 2 GM in NA CHLORIDE 0.9% 500 ML IVPB SCH (01:14)
[2024-03-04] MEDS ORDERED: LORazepam 2 MG/ML VIAL IV PRN (02:13)
[2024-03-04] MEDS: LORazepam 2 MG/ML VIAL IV PRN (04:15)
[2024-03-04 07:21] LABS: Absolute Eosinophils 0.2 K/uL (0-0.5); Absolute Lymphocytes (CBC) 0.9 K/uL (0.7-4.9); Absolute Monocytes 0.7 K/uL (0.1-1.3); Absolute Neutrophil 7.3 K/uL (1.8-8.0); Basophils % 0.5 % (0-1.3); Eosinophils % 1.9 % (0-4.4); Hematocrit 33.9 % (39.6-49.0); Hemoglobin 11.4 g/dL (13.6-17.9); Lymphocytes % 10.2 % (15.3-44.8); MCH 30.7 pg (27.0-35.0); MCHC 33.7 g/dL (32.0-36.0); MCV 90.9 fL (80-100); MPV 9.2 fL (7.6-11.3); Monocytes % 8.1 % (3.3-12.3); Neutrophils % 79.3 % (41.7-73.7); Platelets 222 thou/uL (152-406); RBC Red Blood Cell Count 3.73 M/uL (4.33-5.43)
[2024-03-04 07:38] LABS: Albumin 2.5 g/dL (3.4-5.0); Albumin/Globulin Ratio 0.6 (1.1-1.8); Anion Gap 12.4 mEq/L (5.0-15.0); Bilirubin Total 0.7 mg/dL (0.2-1.0); Globulin 4.5 g/dL (2.3-3.5); Magnesium 1.8 mg/dL (1.6-2.4); Potassium 3.4 mEq/L (3.5-5.1)
[2024-03-04] MEDS: NA CHLORIDE 0.9% 100 ML ONE (08:24)
--- NOTE | 2024-03-04 17:25 | P.PN ---
Date of Service: 03/04/24 Subjective Sleeping in the prone position, easily awakens NAD NAEON ROS 10 point ROS as noted above, otherwise negative Physical Exam General: Sleeping, awakens easily, oriented x3, NAD HEENT: Atraumatic, PERRLA, EOMI Neck: Supple, 2+ carotid pulse no bruit, No LAD Respiratory: Clear to auscultation bilaterally, Normal air movement, on RA Cardiovascular: Mild tachycardia, Normal S1 S2 present Gastrointestinal: Normal bowel sounds, No tenderness, distended (obese) Musculoskeletal: No tenderness Integumentary: Diabetic ulcer right foot dressing CDI Neurological: Normal speech, Normal strength at 5/5 x4 extr, Normal tone Vitals Reviewed Assessment: Sepsis secondary to right great toe wound with gas gangrene- S/P excisional debridement Diabetes mellitus type [id number]-[id number]-yktdgmtzp with noncompliance, hyperglycemia Hyponatremia History of hypertension Chronic alcohol use disorder Medical noncompliance Plan Sepsis secondary to right great toe wound with gas gangrene IVF, continue IV vancomycin/cefepime General Surgery Dr. Garcia, S/P excisional debridement down to fascia right foot necrotic infected Follow wound cultures- will require 4 weeks of antibiotics No severe sepsis or septic shock at this time Blood cultures obtained in EDNGTD PT consulted for instructions with ambulation Diabetes mellitus type 5sjr-tphwuke-xyekxhvrg with noncompliance, hyperglycemia Has not been taking his medications for about a year now ACHS Accu-Chek, sliding scale insulin Semglee started 03/02, glucose mildly improved A1c 7.5 Hyponatremia Hypokalemia sodium improved from 135 Likely related to chronic alcohol use continue IV fluids Recheck chemistry daily History of hypertension BP 175/87 Started norvasc hydralazine PRN Chronic alcohol use disorder Alcohol withdrawal assessments every 4 and as needed As needed Librium Medical noncompliance Counseled on importance of adherence to medication regimen DVT PPX: Lovenox Code status: Full Discharge Plan: Home Plan to discharge in: Greater than 2 days
[2024-03-04] MEDS: POTASSIUM 25 MEQ EFFERV TAB PO ONE (18:24)
[2024-03-05 06:24] LABS: Absolute Eosinophils 0.2 K/uL (0-0.5); Absolute Monocytes 0.7 K/uL (0.1-1.3); Absolute Neutrophil 5.9 K/uL (1.8-8.0); Basophils % 0.5 % (0-1.3); Eosinophils % 2.3 % (0-4.4); Hematocrit 32.8 % (39.6-49.0); Hemoglobin 10.8 g/dL (13.6-17.9); Lymphocytes % 13.2 % (15.3-44.8); MCH 30.1 pg (27.0-35.0); MCV 91.3 fL (80-100); MPV 9.7 fL (7.6-11.3); Monocytes % 8.4 % (3.3-12.3); Neutrophils % 75.6 % (41.7-73.7); Platelets 237 thou/uL (152-406); RBC Red Blood Cell Count 3.59 M/uL (4.33-5.43); Red Cell Distribution Width 14.1 % (12.1-15.2)
[2024-03-05 06:42] LABS: Albumin 2.5 g/dL (3.4-5.0); Albumin/Globulin Ratio 0.5 (1.1-1.8); Anion Gap 7.6 mEq/L (5.0-15.0); Bilirubin Total 0.7 mg/dL (0.2-1.0); Globulin 4.7 g/dL (2.3-3.5); Magnesium 1.9 mg/dL (1.6-2.4); Phosphorus 2.3 mg/dL (2.5-4.9); Potassium 3.6 mEq/L (3.5-5.1); Protein, Total 7.2 g/dL (6.4-8.2)
--- NOTE | 2024-03-05 07:38 | ECHO ---
HEIGHT: 5 ft 4 in WEIGHT: 241 lb 8 oz DATE OF STUDY: 03/04/[address]: Martita Mcclelland NP 2-DIMENSIONAL: YES M.MODE: YES DOPPLER: YES COLOR FLOW: YES TDS: PORTABLE: YES DEFINITY: BUBBLE STUDY: DIAGNOSIS: PULMONARY EDEMA CARDIAC HISTORY: CATHERIZATION: NO SURGERY: NO PROSTHETIC VALVE: NO PACEMAKER: NO MEASUREMENTS (cm) DIASTOLIC (NORMALS) SYSTOLIC (NORMALS) IVSd 1.3 (0.6-1.2) LA Diam 4.1 (1.9-4.0) LVEF 60-65% LVIDd 4.7 (3.5-5.7) LVIDs 3.4 (2.0-3.5) %FS 28% LVPWd 1.3 (0.6-1.2) Ao Diam 2.8 (2.0-3.7) 2 DIMENSIONAL ASSESSMENT: RIGHT ATRIUM: NORMAL LEFT ATRIUM: NORMAL RIGHT VENTRICLE: NORMAL LEFT VENTRICLE: NORMAL TRICUSPID VALVE: NORMAL MITRAL VALVE: NORMAL PULMONIC VALVE: NORMAL AORTIC VALVE: NORMAL PERICARDIAL EFFUSION: NONE AORTIC ROOT: NORMAL LEFT VENTRICULAR WALL MOTION: NORMAL DOPPLER/COLOR FLOW: GRADE II DIASTOLIC DYSFUNCTION COMMENTS: 1. NORMAL LEFT VENTRICULAR SYSTOLIC FUNCTION, EJECTION FRACTION 60-65%, NORMAL WALL MOTION 2. GRADE II DIASTOLIC DYSFUNCTION 3. MILD ELEVATED FILLING PRESSURE (RIGHT ATRIAL PRESSURE 5-10 mmHg) TECHNOLOGIST: LETICIA CACERES
[2024-03-05] MEDS: ALBUTEROL 2.5 MG/3 ML NEB SOL ONE (08:49)
[2024-03-05] MEDS: AMLODIPINE 5 MG TAB PO SCH (09:06)
[2024-03-05] MEDS: FUROSEMIDE 40 MG/4 ML VIAL IV SCH (09:09)
--- NOTE | 2024-03-05 10:20 | P.PN ---
Date of Service: 03/05/24 Subjective Awake and feeling sleepy, Ill appearing Increased WOB On 2 LNC ROS 10 point ROS as noted above, otherwise negative Physical Exam General: awake, alert, and oriented x3, ill appearing HEENT: Atraumatic, PERRLA, EOMI Neck: Supple, 2+ carotid pulse no bruit, No LAD Respiratory: Clear to auscultation bilaterally, Normal air movement, increased WOB, 2LNC Cardiovascular: Mild tachycardia, Normal S1 S2 present Gastrointestinal: Normal bowel sounds, No tenderness, distended (obese) Musculoskeletal: No tenderness, edema to RLE Integumentary: Diabetic ulcer right foot dressing CDI Neurological: Normal speech, Normal strength at 5/5 x4 extr, Normal tone Vitals Reviewed Assessment: Sepsis secondary to right great toe wound with gas gangrene- S/P excisional debridement Diabetes mellitus type [id number]-bwvyque-otfrgfzqd with noncompliance, hyperglycemia Hyponatremia History of hypertension Chronic alcohol use disorder Medical noncompliance Plan Sepsis secondary to right great toe wound with gas gangrene -IVF, continue IV vancomycin/cefepime -General Surgery Dr. Garcia, S/P excisional debridement down to fascia right foot necrotic infected -Follow wound cultures- will require 4 weeks of antibiotics -No severe sepsis or septic shock at this time -Blood cultures obtained in EDNGTD -PT consulted for instructions with ambulation Diabetes mellitus type 9vxr-hihqmhd-szefrshwg with noncompliance, hyperglycemia -Has not been taking his medications for about a year now -ACHS Accu-Chek, sliding scale insulin -Semglee started 03/02, glucose mildly improved -A1c 7.5 Shortness of breath Grade 1 diastolic dysfunction -ECHO reports EF 60-65% Mild elevated filling pressure (right atrial pressure 5- 10 mmHg), Grade 1 diastolic dysfunction -Chest xray (03/03) "Developing pulmonary edema." -Lasix BID -Intake and output recorded -daily weights -Xopenex Q6h PRN Hyponatremia Hypokalemia -sodium 134 -k 3.4 improved to 3.6 -Likely related to chronic alcohol use -continue IV fluids -Recheck chemistry daily History of hypertension -BP 1 -norvasc BID -hydralazine PRN Chronic alcohol use disorder -Alcohol withdrawal assessments every 4 and as needed -As needed Librium Medical noncompliance Counseled on importance of adherence to medication regimen DVT PPX: Lovenox Code status: Full Discharge Plan: Home Plan to discharge in: Greater than 2 days <Martita Mcclelland - Last Filed: 03/05/24 10:13> Patient seen and examined. Plan of care discussed with Ms. Mcclelland. Patient appeared restless. According to report patient has actually not been using oxygen. No recorded fever. Diagnosis Alcohol withdrawal symptoms Volume overload Acute diastolic heart failure Plan: Respiratory status improved Continue CIWA for alcohol withdrawal Increase activity as tolerated Nonweightbearing-right foot. Infectious disease input appreciated Continue IV vancomycin and IV cefepime. PT. <neftali lemons - Last Filed: 03/05/24 12:48>
[2024-03-05] MEDS ORDERED: LEVALBUTEROL 1.25 MG/3 ML NEB NEB PRN (10:41)
[2024-03-05] MEDS: VANCOMYCIN 2 GM in NA CHLORIDE 0.9% 500 ML IVPB SCH (20:16)
[2024-03-05 23:03] VITALS: O2SAT 95
[2024-03-06 08:02] LABS: Absolute Basophils 0.1 K/uL (0-0.5); Absolute Eosinophils 0.2 K/uL (0-0.5); Absolute Lymphocytes (CBC) 1.1 K/uL (0.7-4.9); Absolute Monocytes 0.6 K/uL (0.1-1.3); Absolute Neutrophil 5.6 K/uL (1.8-8.0); Basophils % 0.7 % (0-1.3); Eosinophils % 2.7 % (0-4.4); Hematocrit 34.2 % (39.6-49.0); Hemoglobin 11.2 g/dL (13.6-17.9); Lymphocytes % 14.8 % (15.3-44.8); MCH 29.8 pg (27.0-35.0); MCHC 32.8 g/dL (32.0-36.0); MCV 90.9 fL (80-100); MPV 9.2 fL (7.6-11.3); Monocytes % 7.8 % (3.3-12.3); Platelets 269 thou/uL (152-406); RBC Red Blood Cell Count 3.76 M/uL (4.33-5.43); Red Cell Distribution Width 13.9 % (12.1-15.2)
[2024-03-06 08:14] LABS: Anion Gap 6.6 mEq/L (5.0-15.0); Magnesium 1.7 mg/dL (1.6-2.4); Phosphorus 2.8 mg/dL (2.5-4.9); Potassium 3.6 mEq/L (3.5-5.1)
--- NOTE | 2024-03-06 10:52 | P.DS ---
Admission Date: 03/01/24 Discharge Date: 03/06/24 Disposition: ROUTINE DISCHARGE Discharge Condition: GOOD Reason for Admission: Diabetic foot wound, sepsis Brief History of Present Illness: Diagnosis Sepsis secondary to right great toe wound with gas gangrene- S/P excisional debridement Diabetes mellitus type [id number] with noncompliance, hyperglycemia Shortness of breath Acute Grade 1 diastolic dysfunction Hyponatremia Hypokalemia History of hypertension Chronic alcohol use abuse Medical noncompliance HPI 03/01/24 Abelino Corbin is a 43-year-old male with history of mml-exbkiwe-qurwlrjjn diabetes, hypertension, chronic alcohol use disorder who has been noncompliant with his medications for last 1 year presents emergency department chief complaint of concern for infection of his right foot. He reports that he typically deals with his calluses with a knife and he has had a small wound present to that part of his right foot for a couple months but over the last couple of days it has become swollen, erythematous with a foul odor present. Patient was evaluated in the emergency department his labs are significant for white blood cell count of 18.1 sodium 126 chloride 94 creatinine 1.33 GFR 67 glucose [address] of his right foot was obtained which showed big toe soft tissue ulcer with gas tracking along the dorsal soft tissues in the proximal phalanx as above, no osseous destructive changes to suggest ongoing osteomyelitis on CT. ED physician discussed case with general surgeryDr. Garcia who will see patient in the hospital. Hospital Course: Abelino Corbin is a pleasant 43 year old male with a past medical history significant for nsq-ozgsvxd-mbqwshnoi diabetes, hypertension, chronic alcohol who was admitted to the [facility] on 03/01/24 for Sepsis secondary to right great toe wound with gas gangrene. Abelino presented with a complicated non healing diabetic ulcer to right foot causing sepsis. CT of right foot showing soft tissue ulcer with gas tracking. Dr. Garcia was consulted and surgery performed on 03/02 with pathology showing tissue consistent for abscess. Dr. Garcia noted his procedure "excisional debridement down to the fascia right foot necrotic infected". Physical therapy consulted and did not recommend further therapy. He required oxygen supplementation and c/o of SOB, chest xray showed pulmonary edema, ECHO showed Grade II diastolic dysfunction. IVF turned off and he responded well to lasix. Blood culture with no growth, gram negative RODS growing on tissue culture. He was also treated for hyperglycemia, hypertension, and alcohol withdrawl. He is now on RA, breathing well, tolerated IV antibiotics, ambulating independently and has a rolling walker at home, urinating without difficulty. Plan to continue antibiotic course for total of four weeks with levaquin and doxycycline. On 03/06/24, Abelino was seen on morning rounds and deemed medically stable for discharge. Abelino was discharged with instructions to schedule follow-up appointments with PCP and Dr. Garcia. Abelino was provided prescriptions for Levaquin, doxycycline, Semglee, folic acid, Norvasc, thiamine, multivitamin, Lasix, potassium, Silvadene cream. Physical Exam General: AAO x3, NAD HEENT: Atraumatic, PERRLA, EOMI Neck: Supple, 2+ carotid pulse no bruit, No LAD Respiratory: Clear to auscultation bilaterally, Normal air movement, On RA Cardiovascular: Mild tachycardia, Normal S1 S2 present Gastrointestinal: Normal bowel sounds, No tenderness, distended (obese) Musculoskeletal: No tenderness, edema to RLE Integumentary: Diabetic ulcer right foot dressing CDI Neurological: Normal speech, Normal strength at 5/5 x4 extr, Normal tone Vital Signs/Physical Exam: Temp Pulse Resp BP Pulse Ox 98.3 F 92 H 20 190/110 H 98 03/06/24 08:00 03/06/24 08:00 03/06/24 08:00 03/06/24 08:00 03/06/24 08:00 Laboratory Data at Discharge: WBC 7.50 thou/uL (4.3-10.9) 03/06/24 07:32 Hgb 11.2 g/dL (13.6-17.9) L 03/06/24 07:32 Hct 34.2 % (39.6-49.0) L 03/06/24 07:32 Plt Count 269 thou/uL (152-406) 03/06/24 07:32 PT 15.6 SECONDS (9.4-12.5) H 03/01/24 11:45 INR 1.41 03/01/24 11:45 APTT 29.9 SECONDS (24.3-36.9) 03/01/24 11:45 Sodium 135 mEq/L (136-145) L 03/06/24 07:52 Potassium 3.6 mEq/L (3.5-5.1) 03/06/24 07:52 BUN 16 mg/dL (7-18) 03/06/24 07:52 Creatinine 0.82 mg/dL (0.70-1.30) 03/06/24 07:52 Glucose 149 mg/dL (74-106) H 03/06/24 07:52 Phosphorus 2.8 mg/dL (2.5-4.9) 03/06/24 07:52 Magnesium 1.7 mg/dL (1.6-2.4) 03/06/24 07:52 Total Bilirubin 0.7 mg/dL (0.2-1.0) 03/05/24 05:42 AST 16 U/L (15-37) 03/05/24 05:42 ALT 27 U/L (16-61) 03/05/24 05:42 Alkaline Phosphatase 97 U/L (45-117) 03/05/24 05:42 Home Medications: Amlodipine [Norvasc*] 5 mg PO BID 30 Days #60 tab 03/06/24 Doxycycline Hyclate 100 mg PO BID 23 Days #46 tab 03/06/24 Folic Acid 1 mg PO DAILY 30 Days #30 tab 03/06/24 Furosemide [Lasix] 40 mg PO BID 7 Days #14 tab 03/06/24 Levofloxacin [Levaquin] 750 mg PO DAILY 23 Days #23 tab 03/06/24 Metformin HCl 500 mg PO BID #60 tab 03/06/24 Multivit,Ther Iron,Ca,FA & Min [Centrum Tablet*] 1 tab PO DAILY 30 Days #30 tab 03/06/24 Potassium Chloride [K-Dur] 20 meq PO DAILY 30 Days #7 tab 03/06/24 Silver Sulfadiazine [Silvadene] 20 gm TP DAILY 30 Days #1 tube 03/06/24 Thiamine HCl [Vitamin B-1*] 100 mg PO DAILY 30 Days #30 tab 03/06/24 New Medications: Multivit,Ther Iron,Ca,FA & Min [Centrum Tablet*] 1 tab PO DAILY 30 Days #30 tab Doxycycline Hyclate 100 mg PO BID 23 Days #46 tab Folic Acid 1 mg PO DAILY 30 Days #30 tab Potassium Chloride [K-Dur] 20 meq PO DAILY 30 Days #7 tab Furosemide [Lasix] 40 mg PO BID 7 Days #14 tab Levofloxacin [Levaquin] 750 mg PO DAILY 23 Days #23 tab Metformin HCl 500 mg PO BID #60 tab Amlodipine [Norvasc*] 5 mg PO BID 30 Days #60 tab Silver Sulfadiazine [Silvadene] 20 gm TP DAILY 30 Days #1 tube Thiamine HCl [Vitamin B-1*] 100 mg PO DAILY 30 Days #30 tab Physician Discharge Instructions: Abelino Corbin was treated for right great toe wound s/p excisional debridement down to fascia. Please control blood sugar with diet and Semglee at bedtime, A1C 7.5, Please follow up with your PCP concerning your Blood pressure, diabetes, and acute diastolic heart failure as medications may need to be adjusted. Limited lasix is being provided, for 7 days, due to close monitoring needed to watch potassium level and avoid dehydration. Follow up with your PCP in 3-4 days to discuss all of the above. Please refrain from alcohol use while healing and adjusting to the new medications. Complete cessation would be ideal. 1. Please call and schedule a follow-up appointment with your PCP in 3-5 days - Please follow-up with your PCP for medication refills/adjustments 2. Please call and schedule a follow-up appointment with Dr. Garcia in one week -Follow up in the wound care clinic -wound care use silvadene with sterile gauze to the right foot daily 3. Continue Diabetic diet 4. activity restrictions fall precautions, use rolling walker for safety, nonweight bearing 5. Return to the ED if symptoms worsen New medications Levaquin 750 mg p.o. daily x 23 days Doxycycline 100 mg p.o. twice daily x 23 days Semglee 10 units at bedtime x 60 days Folic acid 1 mg x 30 days Norvasc 5 mg p.o. twice daily x 30 days Thiamine 100 mg p.o. daily x 30 days Multivitamin 1 tablet p.o. daily x 30 days Lasix 40 mg PO twice a day for 7 days Potassium 20 mEq daily x 7 days Silvadene daily to right foot wound Diet: ADA Activity: Fall precautions Followup: Brayan Bryant DO, DO [Primary Care Provider] - Tunde Garcia MD [ACTIVE - CAN ADMIT] - (On friday04/10/2024 at the wound care clinic.)
[2024-03-06 12:46] VITALS: BP 189/102; TEMP 98.4
== END 2024-03-06 14:36 | disposition home or self-care (01) | DRG 853 ==
LOC: ER 10:53 → ERHOLD 13:46 → 2ND 14:11
PROVIDERS: ADMIT Hospitalist; ATTEND Internal Medicine
PROC: 4A033R1 Measurement of Arterial Saturation, Peripheral, Percutaneous Approach (ICD-10-PCS; 2024-03-01)
PROC: 0JDQ0ZZ Extraction of Right Foot Subcutaneous Tissue and Fascia, Open Approach (ICD-10-PCS; 2024-03-02)
PROC: 0JBQ0ZZ Excision of Right Foot Subcutaneous Tissue and Fascia, Open Approach (ICD-10-PCS; principal; 2024-03-02 07:30)
DX: A41.9 Sepsis, unspecified organism (principal); A48.0 Gas gangrene; M72.6 Necrotizing fasciitis; I50.31 Acute diastolic (congestive) heart failure; N17.9 Acute kidney failure, unspecified; Z68.41 Body mass index [BMI] 40.0-44.9, adult; E11.52 Type 2 diabetes mellitus with diabetic peripheral angiopathy with gangrene; E87.1 Hypo-osmolality and hyponatremia; L03.115 Cellulitis of right lower limb; L02.611 Cutaneous abscess of right foot; I11.0 Hypertensive heart disease with heart failure; E66.9 Obesity, unspecified; E11.65 Type 2 diabetes mellitus with hyperglycemia; E11.40 Type 2 diabetes mellitus with diabetic neuropathy, unspecified; E11.621 Type 2 diabetes mellitus with foot ulcer; L97.519 Non-pressure chronic ulcer of other part of right foot with unspecified severity; E87.6 Hypokalemia; F41.9 Anxiety disorder, unspecified; E78.5 Hyperlipidemia, unspecified; F10.10 Alcohol abuse, uncomplicated; Z79.82 Long term (current) use of aspirin; Z79.84 Long term (current) use of oral hypoglycemic drugs; Z91.018 Allergy to other foods; Z28.310 Unvaccinated for COVID-19; Z79.899 Other long term (current) drug therapy; Z91.148 Patient's other noncompliance with medication regimen for other reason
CPT/HCPCS: 36415; 36600; 71045; 73700; 80048; 80053; 80202; 81001; 82010; 82805; 82947; 83036; 83605; 83735; 84100; 85025; 85610; 85730; 87040; 87070; 87075; 87205; 88304; 88305; 93005; 93306; 96365; 96366; 96375; 97161; 99285; J0360; J0692; J1100; J1650; J1940; J2001; J2250; J2270; J2405; J2704; J3010; J7030; J7040; J7050; J7613

== ENCOUNTER 2024-06-15 11:53 | Emergency (ER) | payer SELFPAY ==
--- NOTE | 2024-06-15 12:45 | ER ---
Nurse's Notes [facility] Name: Abelion Corbin Jr Age: 43 yrs Sex: Male : 1980 Arrival Date: 06/15/2024 Time: 11:53 Bed DX3 Private MD: Diagnosis: Asymptomatic Hypertension Presentation: 06/15 12:19 Chief complaint: Patient states: unable to have wound care done on his foot today due kc6 to high BP, they referred him here. pt reports not taking his meds this AM and states, "I just want to go home.". Coronavirus screen: At this time, the client does not indicate any symptoms associated with coronavirus-19. Ebola Screen: No symptoms or risks identified at this time. Initial Sepsis Screen: Does the patient meet any 2 criteria? No. Patient's initial sepsis screen is negative. Does the patient have a suspected source of infection? No. Patient's initial sepsis screen is negative. Risk Assessment: Do you want to hurt yourself or someone else? Patient reports no desire to harm self or others. Onset of symptoms was June 15, 2024. 12:19 Method Of Arrival: Ambulatory [facility] 12:19 Acuity: ROBERTA 3 kc6 Historical: - Allergies: 12:21 starfruit; kc6 - PMHx: 12:21 Hypertensive disorder; diabetes mellitus; Alcoholism; kc6 - Immunization history:: Adult Immunizations up to date. - Infectious Disease History:: Denies. - Social history:: Smoking status: Reported history of juuling and/or vaping. Assessment: 13:00 Reassessment: Patient is alert, oriented x 3, equal unlabored respirations, skin aa5 warm/dry/pink. Vital Signs: 12:19 BP 190 / 106; Pulse 73; Resp 18 S; Temp 98.1(O); Pulse Ox 100% on R/A; Weight 104.33 kg kc6 (R); Height 5 ft. 4 in. (R); 12:19 Body Mass Index 39.48 (104.33 kg, 162.56 cm) [facility] ED Course: 11:55 Patient arrived in ED. im 12:21 Triage completed. kc6 12:21 Arm band placed on. kc6 12:37 Atif Montelongo MD is Attending Physician. ec2 13:01 No provider procedures requiring assistance completed. Patient did not have IV access aa5 during this emergency room visit. Administered Medications: No medications were administered Outcome: 12:44 Discharge ordered by . ec2 13:00 Discharged to home ambulatory, aa5 13:00 Condition: stable 13:00 Discharge instructions given to patient, Instructed on discharge instructions, follow up and referral plans. Demonstrated understanding of instructions, follow-up care, 13:01 Patient left the ED. aa5 Signatures: Estefania Reveles RN RN aa5 Mignon Oleary RN RN kc6 Sherly Wallace Edwin, MD MD ec2
--- NOTE | 2024-06-15 12:45 | EDPHYS ---
Physician Documentation [facility] Name: Abelino Corbin Jr Age: 43 yrs Sex: Male : 1980 Arrival Date: 06/15/2024 Time: 11:53 Bed DX3 Private MD: ED Physician Atif Montelongo HPI: 06/15 12:45 This 43 yrs old Male presents to ER via Ambulatory with complaints of High ec2 Blood Pressure. 12:45 Patient with history of hypertension, no specific complaints, was told to come to the ec2 ED as she had elevated blood pressures. No chest pain or shortness of breath, no headache. Reports he did not take a daily medication.. Historical: - Allergies: 12:21 starfruit; kc6 - PMHx: 12:21 Hypertensive disorder; diabetes mellitus; Alcoholism; kc6 - Immunization history:: Adult Immunizations up to date. - Infectious Disease History:: Denies. - Social history:: Smoking status: Reported history of juuling and/or vaping. ROS: 12:45 Constitutional: as per hpi ec2 Exam: 12:45 Constitutional: GEN: NAD Head: atraumatic Eyes: EOMI Ears: External ears are ec2 normal. CV: regular rate LUNGS: no respiratory distress ABD: non-distended SKIN: no evidence of rashes MSK: no evidence of trauma Vital Signs: 12:19 BP 190 / 106; Pulse 73; Resp 18 S; Temp 98.1(O); Pulse Ox 100% on R/A; Weight 104.33 kg kc6 (R); Height 5 ft. 4 in. (R); 12:19 Body Mass Index 39.48 (104.33 kg, 162.56 cm) kc6 MDM: 12:37 Medical Screening Exam initiated ec2 12:45 Data reviewed: vital signs, nurses notes. ED course: Patient arrives today for ec2 asymptomatic hypertension. Examination is revealing for well-appearing nontoxic individuals otherwise in no acute distress. Given lack of associated symptoms, will discharge home have follow-up primary care. Discharged to follow-up and continued take his medications and to discuss possible medication changes if he continues to have elevated blood pressures.. Administered Medications: No medications were administered Disposition Summary: 06/15/24 12:44 Discharge Ordered Notes: Location: Home ec2 Condition: Stable ec2 Diagnosis - Asymptomatic Hypertension ec2 Followup: ec2 - With: Private Physician - When: - Reason: Re-evaluation by your physician Forms: - Medication Reconciliation Form ec2 - Antibiotic Education ec2 - Prescription Opioid Use ec2 - Patient Portal Instructions ec2 - Leadership Thank You Letter ec2 Signatures: Mignon Oleary RN RN kc6 Atif Montelongo MD MD ec2
[2024-06-15 13:27] VITALS: BP 190/106; TEMP 98.1; O2SAT 100
== END 2024-06-15 13:01 | disposition home or self-care (01) ==
LOC: ER 11:53
DX: I10 Essential (primary) hypertension (principal); E11.9 Type 2 diabetes mellitus without complications; F17.290 Nicotine dependence, other tobacco product, uncomplicated; Z91.018 Allergy to other foods
CPT/HCPCS: 99282

== ENCOUNTER 2024-11-01 19:16 | Emergency (ER) | payer SELFPAY ==
--- NOTE | 2024-11-01 20:14 | RAD REPORT ---
Exam:Foot Left 3 View CLINICAL HISTORY: Left foot pain FINDINGS: No fracture or dislocation seen. No bony destructive lesion seen. Blister along the plantar soft tissues near the first DIP.
--- NOTE | 2024-11-01 20:32 | ER ---
Nurse's Notes [facility] Name: Abelino Corbin Jr Age: 44 yrs Sex: Male : 1980 Arrival Date: 11/01/2024 Time: 19:16 Bed 12 Private MD: Diagnosis: Unspecified open wound of left great toe without damage to nail, initial encounter Presentation: 11/01 19:27 Chief complaint: Patient states: I noticed today that there is a blister on my big toe kd3 on the left foot. I have had to have my other toe cleaned out before. I feel great otherwise. Coronavirus screen: Vaccine status: Patient reports being unvaccinated. Ebola Screen: No symptoms or risks identified at this time. Initial Sepsis Screen: Does the patient meet any 2 criteria? No. Patient's initial sepsis screen is negative. Does the patient have a suspected source of infection? No. Patient's initial sepsis screen is negative. Risk Assessment: Do you want to hurt yourself or someone else? Patient reports no desire to harm self or others. Onset of symptoms was November 01, 2024. 19:27 Method Of Arrival: Ambulatory kd3 19:27 Acuity: ROBERTA 4 kd3 Triage Assessment: 19:29 General: Appears in no apparent distress. Behavior is calm, cooperative. Pain: Denies kd3 pain. Historical: - Allergies: 19:29 starfruit; kd3 - PMHx: 19:29 Alcoholism; diabetes mellitus; Hypertensive disorder; kd3 - Immunization history:: Adult Immunizations up to date. - Infectious Disease History:: Denies. - Social history:: Smoking status: Patient denies any tobacco usage or history of. Screenin:48 [facility] ED Fall Risk Assessment (Adult) History of falling in the last 3 months, cp4 including since admission No falls in past 3 months (0 pts) Confusion or Disorientation No (0 pts) Intoxicated or Sedated No (0 pts) Impaired Gait No (0 pts) Mobility Assist Device Used No (0 pt) Altered Elimination No (0 pt) Score/Fall Risk Level 0 - 2 = Low Risk Oriented to surroundings, Maintained a safe environment, Assessed \T\ reinforced patient's understanding of fall precautions, Hourly rounding (assess needs \T\ fall precautionary measures) done. Abuse screen: Denies threats or abuse. Denies injuries from another. Nutritional screening: No deficits noted. Tuberculosis screening: No symptoms or risk factors identified. Assessment: 19:48 General: Appears in no apparent distress. uncomfortable, Behavior is calm, cooperative, cp4 appropriate for age. 19:48 Pain: Denies pain. Neuro: Level of Consciousness is awake, alert, obeys commands, cp4 Oriented to person, place, time, situation. Cardiovascular: Patient's skin is warm and dry. Respiratory: Airway is patent Respiratory effort is even, unlabored. GI: No signs and/or symptoms were reported involving the gastrointestinal system. : No signs and/or symptoms were reported regarding the genitourinary system. EENT: No signs and/or symptoms were reported regarding the EENT system. Derm: Reports blister to the left big toe. Musculoskeletal: No signs and/or symptoms reported regarding the musculoskeletal system. Vital Signs: 19:27 Pulse 83; Resp 16; Temp 98.1(O); Pulse Ox 98% on R/A; Weight 99.79 kg; Height 5 ft. 4 kd3 in. ; 19:32 BP 180 / 97; kd3 19:27 Body Mass Index 37.76 (99.79 kg, 162.56 cm) kd3 ED Course: 19:20 Patient arrived in ED. jj6 19:20 Lizzeth Boss FNP-C [facility]. kb 19:20 Carmen Bush MD is Attending Physician. kb 19:27 Zaida Carson, NELLIE is Primary Nurse. kd3 19:29 Triage completed. kd3 19:29 Arm band placed on right wrist. kd3 19:48 Bed in low position. Call light in reach. Side rails up X 1. cp4 19:51 Foot Left 3 View XRAY In Process Unspecified. EDMS 19:52 No provider procedures requiring assistance completed. cp4 20:41 Provided Education on: toe infection. cp4 20:41 Patient did not have IV access during this emergency room visit. cp4 Administered Medications: 20:40 Drug: Trimethoprim-Sulfamethoxazole PO (160 mg-800 mg (DS) 1 tablet PO once Route: PO; cp4 20:40 Follow up: Response: No adverse reaction cp4 20:40 Drug: Cephalexin PO 500 mg PO once Route: PO; cp4 20:40 Follow up: Response: No adverse reaction cp4 Medication: 19:48 VIS not applicable for this client. cp4 Outcome: 20:31 Discharge ordered by . pepe 20:41 Discharged to home ambulatory, cp4 20:41 Condition: stable 20:41 Discharge instructions given to patient, Instructed on discharge instructions, follow up and referral plans. medication usage, Demonstrated understanding of instructions, follow-up care, medications, Prescriptions given X 2, 20:46 Patient left the ED. cp4 Signatures: Dispatcher [employer] EDMS Lizzeth Boss, CHARISSE CHAPMANP-Fabiana Nolasco [email or web address] Zaida Carson, RN RN [email or web address] Lyndsey Adler cp4
--- NOTE | 2024-11-01 20:32 | EDPHYS ---
Physician Documentation [facility] Name: Abelino Corbin Jr Age: 44 yrs Sex: Male : 1980 Arrival Date: 11/01/2024 Time: 19:16 Bed 12 Private MD: ED Physician Carmen Bush HPI: 11/01 19:24 This 44 yrs old Male presents to ER via Unassigned with complaints of POSSIBLE kb INFECTION ON TOE. 19:24 Pt is a 44 year old male who presents for wound to left great toe that he noticed kb today. States he isn't sure when the wound started or what caused it. also reports blister to medial aspect of great toe that he also noticed today. Denies any pain. States he feels fantastic. . Historical: - Allergies: 19:29 starfruit; kd3 - PMHx: 19:29 Alcoholism; diabetes mellitus; Hypertensive disorder; kd3 - Immunization history:: Adult Immunizations up to date. - Infectious Disease History:: Denies. - Social history:: Smoking status: Patient denies any tobacco usage or history of. ROS: 19:24 Constitutional: As per HPI kb Exam: 19:27 Constitutional: This is a well developed, well nourished patient who is awake, alert, kb and in no acute distress. Head/Face: Normocephalic, atraumatic. ENT: Moist Mucous membranes Cardiovascular: Regular rate Respiratory: Respirations even and unlabored. No increased work of breathing. Talking in full sentences MS/ Extremity: Pulses equal, no cyanosis. Neurovascular intact. Full, normal range of motion. Neuro: Awake and alert, GCS 15, oriented to person, place, time, and situation. 20:10 Skin: open wound without erythema, drainage, warmth to outer and bottom of left great kb toe. Blister that is intact to left great toe between first and second digits. . Vital Signs: 19:27 Pulse 83; Resp 16; Temp 98.1(O); Pulse Ox 98% on R/A; Weight 99.79 kg; Height 5 ft. 4 kd3 in. ; 19:32 BP 180 / 97; kd3 19:27 Body Mass Index 37.76 (99.79 kg, 162.56 cm) kd3 MDM: 19:20 Medical Screening Exam initiated kb 20:28 Differential diagnosis: diabetic ulcer, osteomyelitis, cellulitis. Data reviewed: vital kb signs, nurses notes. Counseling: I had a detailed discussion with the patient and/or guardian regarding the historical points, exam findings, and any diagnostic results supporting the discharge/admit diagnosis, radiology results, the need for outpatient follow up, a family practitioner, to return to the emergency department if symptoms worsen or persist or if there are any questions or concerns that arise at home. Special discussion: I have referred the patient to see his PCP for further evaluation of high blood pressure. ED course: No evidence of osteomyelitis on xray. No signs of cellulitis/infection currently. Pt educated on wound care and antibiotics, as well as follow up and return precautions. . 11/01 19:26 Order name: Foot Left 3 View XRAY; Complete Time: 20:26 kb Administered Medications: 20:40 Drug: Trimethoprim-Sulfamethoxazole PO (160 mg-800 mg (DS) 1 tablet PO once Route: PO; cp4 20:40 Follow up: Response: No adverse reaction cp4 20:40 Drug: Cephalexin PO 500 mg PO once Route: PO; cp4 20:40 Follow up: Response: No adverse reaction cp4 Disposition Summary: 11/01/24 20:31 Discharge Ordered Notes: Location: Home kb Condition: Stable kb Diagnosis - Unspecified open wound of left great toe without damage to nail, initial encounter kb Followup: kb - With: Emergency Department - When: As needed - Reason: Worsening of condition Followup: kb - With: Private Physician - When: 2 - 3 days - Reason: Recheck today's complaints, Continuance of care, Re-evaluation by your physician Discharge Instructions: - Discharge Summary Sheet kb - Wound Care, Adult kb Forms: - Medication Reconciliation Form kb - Antibiotic Education kb - Prescription Opioid Use kb - Patient Portal Instructions kb - Leadership Thank You Letter kb Prescriptions: - Cephalexin 500 mg Oral Capsule - take 1 capsule ORAL route every 8 hours for 10 days; 30 capsule; Refills: 0, kb Product Selection Permitted - Bactrim DS 800-160 mg Oral Tablet - take 1 tablet ORAL route every 12 hours for 10 days; 20 tablet; Refills: 0, kb Product Selection Permitted Addendum: 11/03/2024 07:11 Co-signature as Attending Physician, Carmen Bush MD I agree with the assessment and g b1 plan of care. I reviewed the patient's care provided by the Advanced Practice Provider and agree with the diagnosis and treatment plan. Signatures: Dispatcher [employer] Lizzeth Sims, TYREE-Josemanuel HIDE PULLER-Zaida Presley, RN RN kd3 Carmen Bush MD MD gb1 Lyndsey Adler cp4 Corrections: (The following items were deleted from the chart) 11/01 20:10 19:24 Pt is a 44 year old male who presents for wound to left great toe that he noticed kb today. . kb 20:11 19:27 Constitutional: This is a well developed, well nourished patient who is awake, kb alert, and in no acute distress. Head/Face: Normocephalic, atraumatic. ENT: Moist Mucous membranes Cardiovascular: Regular rate Respiratory: Respirations even and unlabored. No increased work of breathing. Talking in full sentences MS/ Extremity: Pulses equal, no cyanosis. Neurovascular intact. Full, normal range of motion. Neuro: Awake and alert, GCS 15, oriented to person, place, time, and situation. kb
[2024-11-01] MEDS ORDERED: CEPHALEXIN 250 MG CAP ONE (20:35)
[2024-11-01] MEDS ORDERED: SMZ./TMP. 800/160 MG TABLET ONE (20:36)
[2024-11-01 21:07] VITALS: TEMP 98.1; O2SAT 98
[2024-11-01 21:08] VITALS: BP 180/97
== END 2024-11-01 20:46 | disposition home or self-care (01) ==
LOC: ER 19:16
DX: S91.102A Unspecified open wound of left great toe without damage to nail, initial encounter (principal)
CPT/HCPCS: 99283